=== PATIENT | male | born 1965 | race Caucasian/White ===

== ENCOUNTER 2023-10-14 15:02 | Inpatient (IN) | payer OTHER ==
[~2023-10-14] VITALS: Ht 175.3 cm; Wt 91.2 kg
[2023-10-14] MEDS ORDERED: ASPIRIN 325MG TABLET PO ONE (17:30)
[2023-10-14 17:33] LABS: BASOPHILS % 0.2 % (0.0-2.0); EOSINOPHILS % 1.4 % (0.0-5.0); HEMATOCRIT. 39.4 % (42.0-52.0); HEMOGLOBIN. 13.6 g/dL (14.0-18.0); LYMPHOCYTES % 20.8 % (20.0-50.0); MEAN CORPUSCULAR HEMOGLOBIN 32.6 pg (28.0-32.0); MEAN CORPUSCULAR HGB CONC 34.6 g/dL (31.0-37.0); MEAN CORPUSCULAR VOLUME 94.2 fL (80.0-94.0); MEAN PLATELET VOLUME 8.5 fl (7.4-10.4); MONOCYTES % 4.9 % (2.0-8.0); NEUTROPHILS % 72.7 % (40.0-76.0); PLATELET 204 x1000/uL (130-400); RED BLOOD CELL COUNT 4.18 mill/uL (4.7-6.1); RED CELL DISTRIBUTION WIDTH 13.6 % (11.6-14.6); WHITE BLOOD COUNT 9.9 x1000/uL (4.5-11.0)
[2023-10-14 17:42] LABS: INR 0.9; PROTHROMBIN TIME 10.5 sec (9.6-11.0)
[2023-10-14 17:50] LABS: CLARITY URINE CLEAR (CLEAR); COLOR URINE YELLOW (YELLOW); GLUCOSE URINE 2+ (NEGATIVE); KETONES URINE NEGATIVE (NEGATIVE); LEUKOCYTE ESTERASE URINE NEGATIVE (NEGATIVE); NITRITE URINE NEGATIVE (NEGATIVE); OCCULT BLOOD URINE NEGATIVE (NEGATIVE); PH URINE 5.5 (4.5-8.0); PROTEIN URINE 2+ (NEGATIVE)
[2023-10-14] MEDS ORDERED: MAGNESIUM/ALUMINUM HYDROXIDE/SIMETHICONE 30ML UDC PO PRN (18:00)
[2023-10-14] MEDS ORDERED: IPRATROPIUM/ALBUTEROL 0.5-3(2.5)MG/3ML NEB HHN PRN (18:00)
[2023-10-14] MEDS ORDERED: GUAIFENESIN 200MG/10ML SUGAR FREE UDC PO PRN (18:00)
[2023-10-14] MEDS ORDERED: ONDANSETRON HCL 4MG/2ML INJ IV PRN (18:00)
[2023-10-14] MEDS ORDERED: ACETAMINOPHEN 325MG TABLET PO PRN (18:00)
[2023-10-14] MEDS ORDERED: DEXTROSE 50% WATER 50ML SYRINGE IV PRN (18:00)
[2023-10-14] MEDS ORDERED: CLONIDINE 0.1MG TABLET PO PRN (18:00)
[2023-10-14] MEDS ORDERED: DOCUSATE SODIUM 100MG CAPSULE PO PRN (18:00)
[2023-10-14 18:02] LABS: *AMPHETAMINES SCREEN URINE NEGATIVE (NEGATIVE); *BARBITURATES SCREEN URINE NEGATIVE (NEGATIVE); *BENZODIAZEPINES SCREEN URINE NEGATIVE (NEGATIVE); *COCAINE SCREEN URINE NEGATIVE (NEGATIVE); CANNABINOID URINE SCREEN NEGATIVE (NEGATIVE); ECSTASY MDMA SCREEN URINE NEGATIVE (NEGATIVE); METHADONE URINE SCREEN Neg (NEGATIVE); OPIATES URINE SCREEN NEGATIVE (NEGATIVE); PHENCYCLIDINE URINE SCREEN NEGATIVE (NEGATIVE)
[2023-10-14 18:08] LABS: BACTERIA URINE TRACE; RBC URINE NONE SEEN /hpf (0-2); SQUAMOUS EPITHELIAL CELL URINE RARE /lpf (RARE/1+); WBC URINE NONE SEEN /hpf (0-2)
[2023-10-14 18:09] LABS: ALANINE AMINOTRANSFERASE 9 IU/L (10-49); ASPARTATE AMINOTRANSFERASE 13 IU/L (<34); BILIRUBIN TOTAL 0.3 mg/dL (0.1-1.0); CALCIUM 9.1 mg/dL (8.7-10.4); CARBON DIOXIDE 25 mEq/L (21-32); CHLORIDE 104 mEq/L (98-107); CREATININE 1.2 mg/dL (0.6-1.3); GLUCOSE 205 mg/dL (70-105); POTASSIUM 4.5 mEq/L (3.5-5.1); PROTEIN TOTAL 7.2 g/dL (6.0-8.3); SODIUM 136 mEq/L (136-145); TROPONIN I HIGH SENSITIVITY 4 ng/L (3.0-53); UREA NITROGEN BLOOD 22 mg/dL (9-23)
[2023-10-14 18:17] LABS: TROPONIN I HIGH SENSITIVITY < 4 ng/L (3.0-53)
[2023-10-14 18:18] LABS: ETHANOL BLOOD < 10 mg/dL (<10)
[2023-10-14] MEDS: SODIUM CHLORIDE 0.45% 1,000 ML IV ONE (19:15)
[2023-10-14] MEDS: BLOOD SUGAR DIAGNOSTIC STRIP TEST SCH (20:30)
[2023-10-14] MEDS ORDERED: IOHEXOL-350 100 ML BOTTLE ONE (20:43)
[2023-10-14] MEDS: CLOPIDOGREL 75MG TABLET PO SCH (20:57)
[2023-10-14] MEDS: ASPIRIN 325MG TABLET PO NR (20:57)
[2023-10-14] MEDS: INSULIN LISPRO 100 UNITS/ML SUBCUT SCH (20:58)
[2023-10-14] MEDS: ATORVASTATIN CALCIUM 40MG TABLET PO SCH (21:05)
[2023-10-14 23:35] VITALS: BP 145/92; PULSE 87; RESP 18; TEMP 98.4
[2023-10-15] MEDS: ACETAMINOPHEN 325MG TABLET PO PRN (01:43)
[2023-10-15 04:00] VITALS: BP 111/81; PULSE 77; RESP 16; TEMP 98.1
[2023-10-15] MEDS: PANTOPRAZOLE 40MG DR TABLET PO SCH (06:22)
[2023-10-15 06:27] LABS: BASOPHILS % 0.5 % (0.0-2.0); EOSINOPHILS % 2.2 % (0.0-5.0); HEMATOCRIT. 38.9 % (42.0-52.0); HEMOGLOBIN. 13.3 g/dL (14.0-18.0); LYMPHOCYTES % 26.5 % (20.0-50.0); MEAN CORPUSCULAR HGB CONC 34.3 g/dL (31.0-37.0); MEAN CORPUSCULAR VOLUME 93.5 fL (80.0-94.0); MEAN PLATELET VOLUME 8.5 fl (7.4-10.4); NEUTROPHILS % 63.8 % (40.0-76.0); PLATELET 185 x1000/uL (130-400); RED BLOOD CELL COUNT 4.16 mill/uL (4.7-6.1); RED CELL DISTRIBUTION WIDTH 13.5 % (11.6-14.6); WHITE BLOOD COUNT 7.6 x1000/uL (4.5-11.0)
[2023-10-15] MEDS ORDERED: PANTOPRAZOLE 40MG DR TABLET PO SCH (06:50)
[2023-10-15 07:24] LABS: ALANINE AMINOTRANSFERASE 8 IU/L (10-49); ASPARTATE AMINOTRANSFERASE 14 IU/L (<34); BILIRUBIN TOTAL 0.5 mg/dL (0.1-1.0); CALCIUM 9.2 mg/dL (8.7-10.4); CARBON DIOXIDE 24 mEq/L (21-32); CHLORIDE 106 mEq/L (98-107); CHOLESTEROL 151 mg/dL (<200); GLUCOSE 178 mg/dL (70-105); HDL CHOLESTEROL 35 mg/dL (>55); LDL CHOLESTEROL 101 mg/dL (5-100); PROTEIN TOTAL 7.1 g/dL (6.0-8.3); SODIUM 139 mEq/L (136-145); T4 FREE 0.98 ng/dL (0.89-1.76); THYROID STIMULATING HORMONE 1.69 uIU/mL (0.55-4.78); TRIGLYCERIDE 92 mg/dL (0-150); UREA NITROGEN BLOOD 20 mg/dL (9-23)
[2023-10-15] MEDS: ASPIRIN 81MG EC TABLET PO SCH (08:52)
[2023-10-15 08:55] VITALS: BP 176/93; PULSE 84; RESP 16; TEMP 98.4
[2023-10-15 12:20] VITALS: BP 159/106; PULSE 91; RESP 15; TEMP 98.1
[2023-10-15] MEDS: PREDNISONE 20MG TABLET PO SCH (13:40)
[2023-10-15] MEDS: ENOXAPARIN 40MG/0.4ML SYR SUBCUT SCH (14:24)
[2023-10-15 16:07] VITALS: BP 146/84; PULSE 94; RESP 16; TEMP 98.3
[2023-10-15 20:00] VITALS: BP 136/82; PULSE 103; RESP 18; TEMP 98.2
[2023-10-16] VITALS: BP 142/86; PULSE 105; RESP 16; TEMP 98.4
[2023-10-16 04:00] VITALS: BP 124/72; PULSE 93; RESP 15; TEMP 98.9
[2023-10-16 06:16] LABS: BASOPHILS % 0.1 % (0.0-2.0); EOSINOPHILS % 0.2 % (0.0-5.0); HEMATOCRIT. 39.3 % (42.0-52.0); HEMOGLOBIN. 13.2 g/dL (14.0-18.0); LYMPHOCYTES % 7.5 % (20.0-50.0); MEAN CORPUSCULAR HGB CONC 33.7 g/dL (31.0-37.0); MEAN CORPUSCULAR VOLUME 95.2 fL (80.0-94.0); MEAN PLATELET VOLUME 8.7 fl (7.4-10.4); MONOCYTES % 3.9 % (2.0-8.0); NEUTROPHILS % 88.3 % (40.0-76.0); PLATELET 206 x1000/uL (130-400); RED BLOOD CELL COUNT 4.12 mill/uL (4.7-6.1); RED CELL DISTRIBUTION WIDTH 13.2 % (11.6-14.6); WHITE BLOOD COUNT 15.1 x1000/uL (4.5-11.0)
[2023-10-16 06:53] LABS: CALCIUM 8.9 mg/dL (8.7-10.4); CARBON DIOXIDE 25 mEq/L (21-32); CHLORIDE 104 mEq/L (98-107); CREATININE 1.1 mg/dL (0.6-1.3); GLUCOSE 300 mg/dL (70-105); POTASSIUM 3.9 mEq/L (3.5-5.1); SODIUM 136 mEq/L (136-145); UREA NITROGEN BLOOD 24 mg/dL (9-23)
[2023-10-16 08:00] VITALS: BP 117/81; PULSE 89; RESP 17; TEMP 98.7
[2023-10-16] MEDS ORDERED: METF-874 PO (10:40)
[2023-10-16] MEDS ORDERED: ATOR-2 PO (10:40)
[2023-10-16] MEDS ORDERED: CLOP-31 PO (10:40)
[2023-10-16] MEDS ORDERED: P20 PO (10:40)
[2023-10-16] MEDS ORDERED: ASPI-1406 PO (10:40)
[2023-10-16] MEDS ORDERED: LIP40 PO (10:40)
[2023-10-16] MEDS ORDERED: ACYC200C31 PO (10:40)
[2023-10-16 12:00] VITALS: BP 120/81; PULSE 89; RESP 17; TEMP 98.7
[2023-10-16 12:46] VITALS: BP 117/81; PULSE 89; TEMP 98.7; O2SAT 97
[2023-10-17] MEDS ORDERED: FAMOTIDINE 20MG TABLET PO SCH (09:00)
== END 2023-10-16 11:30 | disposition home or self-care (01) | DRG 48 ==
LOC: ER 15:02 → 3WST 17:31
PROVIDERS: ADMIT Internal Medicine; ATTEND Internal Medicine
DX: G51.0 Bell's palsy (principal); E11.9 Type 2 diabetes mellitus without complications; E78.5 Hyperlipidemia, unspecified; F32.A Depression, unspecified; I10 Essential (primary) hypertension; R47.1 Dysarthria and anarthria; M19.90 Unspecified osteoarthritis, unspecified site; R29.703 NIHSS score 3; Z59.01 Sheltered homelessness; Z79.02 Long term (current) use of antithrombotics/antiplatelets; Z79.84 Long term (current) use of oral hypoglycemic drugs; Z79.899 Other long term (current) drug therapy
CPT/HCPCS: 36415; 70496; 70498; 70551; 71045; 80048; 80053; 80061; 80305; 80320; 81003; 82962; 83036; 83880; 84439; 84443; 84484; 85025; 86850; 86900; 93005; 93306; 97162; 97166; 97530; 97535; 99291; J1650; J1815; J7512; Q9967; G0480